=== PATIENT | female | born 1990 | race Caucasian/White ===

== ENCOUNTER 2021-04-01 04:06 | Emergency (ER) | payer BC ==
[2021-04-01] MEDS ORDERED: Sodium Chloride 0.9% 1,000 ML IV ONE (04:08)
[2021-04-01] MEDS ORDERED: Sodium Chloride 0.9% 2.5 ML Syringe FLUSH PRN (04:08)
[2021-04-01] MEDS ORDERED: Sodium Chloride 0.9% 10 ML Syringe FLUSH PRN (04:08)
[2021-04-01 04:40] LABS: ACETAMINOPHEN <2.0 ug/mL; BLOOD UREA NITROGEN,BUN 4 mg/dL (7.0-18.0); CARBON DIOXIDE,CO2 26.3 mmol/L (21.0-32.0); CHLORIDE,CL 107 mmol/L (98-107); GLUCOSE RANDOM 102 mg/dL (74-106); POTASSIUM,K 3.9 mmol/L (3.5-5.1); SODIUM,NA 145 mmol/L (136-145)
--- NOTE | 2021-04-01 05:25 | CT ---
INDICATION: Unresponsive TECHNIQUE: CT cervical spine without contrast. COMPARISON: None FINDINGS: Vertebral alignment: Alignment is normal. Vertebrae: There are no fractures or suspicious bony lesions. Discs and facet joints: Disc spaces and facets are within normal limits. Extraspinal findings: Prevertebral soft tissues, visualized airway, and visualized lungs are unremarkable. IMPRESSION: Unremarkable cervical spine CT. Please note that all CT scans at this facility use dose modulation, iterative reconstruction, and/or weight-based dosing when appropriate to reduce radiation dose to as low as reasonably achievable. Dictated by Vee Chin MD @ 04/01/2021 5:25:[address] Vee Chin @ Apr 01 2021 5:25AM
--- NOTE | 2021-04-01 05:27 | CT ---
INDICATION: Unresponsive TECHNIQUE: CT head without contrast. COMPARISON: None FINDINGS: CSF spaces: Within normal limits for age. Brain parenchyma: The gonzalez-white differentiation is normal. No sign of mass, hemorrhage, or midline shift. Skull base and calvarium: The visualized paranasal sinuses and mastoid air cells demonstrate no acute or significant findings. The visualized orbits are grossly unremarkable. No skull fractures. IMPRESSION: Unremarkable noncontrast head CT. Please note that all CT scans at this facility use dose modulation, iterative reconstruction, and/or weight-based dosing when appropriate to reduce radiation dose to as low as reasonably achievable. Dictated by Vee Chin MD @ 04/01/2021 5:26:[address] Vee Chin @ Apr 01 2021 5:26AM
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
--- NOTE | 2021-04-02 17:35 | CR ---
EXAM DATE: 04/01/21 PATIENT'S AGE: 30 Patient: MAUREEN TEMPLETON Facility: [facility] Site . Site : 1990 Study: [id number]-5/3/2021 11:37:16 AM Ordering Physician: YESY Final Report: INDICATION: Altered mental status. COMPARISON: None. TECHNIQUE: Upright AP chest. FINDINGS: Normal size cardiac silhouette. No acute pneumonic infiltrates or CHF. No pneumothorax or pleural effusion. Impression: Negative upright AP chest. Dictated by Balwinder Montoya MD @ 04/02/2021 12:28:37 PM Signed by: Balwinder Montoya MD @04/02/2021 12:28:37 PM (Electronic Signature) Report Signed by Proxy. LAVELLE
== END 2021-04-01 06:20 | disposition home or self-care (01) ==
LOC: MW.ED 04:06
DX: R41.82 Altered mental status, unspecified (principal); F10.129 Alcohol abuse with intoxication, unspecified; Y90.7 Blood alcohol level of 200-239 mg/100 ml
CPT/HCPCS: 36415; 70450; 70450-26; 71045; 71045-26; 72125; 72125-26; 80053; 80143; 80179; 80305-QW; 80307; 81001; 84703; 85025; 93005; 93010; 99283; 99285-25; J7030